=== PATIENT | male | born 1955 | race Caucasian/White ===

== ENCOUNTER 2021-09-20 14:44 | Emergency (ER) | payer BC ==
[2021-09-20] MEDS: Sodium Chloride 0.9% 10 ML Syringe FLUSH PRN ×3 (14:54→15:22)
[2021-09-20] MEDS ORDERED: Aspirin 81 MG Tab.Chew PO ONE (15:05)
[2021-09-20 15:32] LABS: ANION GAP 13.9 mEq/L (7-13)
[2021-09-20] MEDS ORDERED: Iopamidol 755 Mg/ML 100 ML Bottle IVPUSH ONE (15:34)
[2021-09-20] MEDS ORDERED: Sodium Chloride 0.9% 1,000 ML IV ONE ×2 (16:13→17:39)
== END 2021-09-20 18:56 | disposition home or self-care (01) ==
LOC: DL.ED 14:44
DX: I48.91 Unspecified atrial fibrillation (principal); E86.0 Dehydration; I25.2 Old myocardial infarction; E11.9 Type 2 diabetes mellitus without complications; E66.9 Obesity, unspecified; F17.210 Nicotine dependence, cigarettes, uncomplicated; Z88.5 Allergy status to narcotic agent; Z68.32 Body mass index [BMI] 32.0-32.9, adult; Z20.822 Contact with and (suspected) exposure to COVID-19
CPT/HCPCS: 36415; 71045; 71260; 80053; 81001; 83605; 83690; 83735; 84132; 84443; 84484; 85025; 85379; 85610; 86140; 87635; 93005; 96360; 99285; A9270; J3490; J7030; Q9967; U0002